=== PATIENT | male | born 1975 | race Two or more races ===

== ENCOUNTER 2020-06-29 21:00 | Emergency (ER) | payer OTHER ==
[~2020-06-29] VITALS: Ht 162.6 cm; Wt 86.6 kg
[2020-06-29] MEDS ORDERED: NORVASC5 MG PO (22:59)
[2020-06-29 23:17] VITALS: BP 167/95
== END 2020-06-29 23:17 | disposition home or self-care (01) ==
LOC: FSED 21:20
DX: R07.9 Chest pain, unspecified (principal); I10 Essential (primary) hypertension
CPT/HCPCS: 71045; 93005; 99283